=== PATIENT | female | born 1975 | race Caucasian/White ===

== ENCOUNTER 2018-01-05 15:53 | Emergency (ER) | payer BC ==
[2018-01-05 15:59] VITALS: BP 152/99
--- NOTE | 2018-01-05 16:24 | EDPHY ---
H & P Smoking Status: Never smoked Time Seen by Provider: 01/05/18 16:12 HPI/ROS: CHIEF COMPLAINT: Vomiting and abdominal pain HISTORY OF PRESENT ILLNESS: Patient is a 42-year-old female with a long history of idiopathic gastroparesis with the J-tube present for the last 7 years here with"have a gastroparesis flare up." She states she intermittently gets flare-ups of her gastroparesis and developed severe nausea and vomiting this feels like similar flares. She typically takes liquid hydrocodone through the J-tube but forgot her prescription at home. She is in town for business and lives in [place]. Additionally she takes sublingual Zofran but this has not been working the last 2 days. She is in town until Wednesday. She denies any fever or chills diarrhea. Last bowel movement was yesterday. She is passing gas today. REVIEW OF SYSTEMS: Constitutional: No fever, no chills. Eyes: No discharge. ENT: No sore throat. Cardiovascular: No chest pain, no palpitations. Respiratory: No cough, no shortness of breath. Gastrointestinal: + abdominal pain, no vomiting. Genitourinary: No hematuria. Musculoskeletal: No back pain. Skin: No rashes. Neurological: No headache. (Rigoberto Alcocer) Physical Exam: General Appearance: Alert and no distress. Eyes: Pupils equal and round no injection. Respiratory: Chest is nontender, lungs are clear to auscultation. Cardiac: regular rate and rhythm. Gastrointestinal: Abdomen is soft and with minimal epigastric tenderness, no masses, bowel sounds normal. Musculoskeletal: Neck is supple and nontender. Extremities have full range of motion and are nontender. Skin: No rashes or lesions. (Rigoberto Alcocer) Constitutional: Initial Vital Signs Temperature (C) 36.6 C 01/05/18 15:54 Heart Rate 94 01/05/18 15:54 Respiratory Rate 18 01/05/18 15:54 Blood Pressure 152/99 H 01/05/18 15:54 O2 Sat (%) 95 01/05/18 15:54 O2 Delivery Mode Room Air Allergies/Adverse Reactions: amoxicillin [From Augmentin] Allergy (Verified 01/06/18 16:40) clavulanic acid [From Augmentin] Allergy (Verified 01/06/18 16:40) dexamethasone [From Decadron] Allergy (Verified 01/06/18 16:40) hydromorphone [From Dilaudid] Allergy (Verified 01/06/18 16:40) lidocaine Allergy (Verified 01/06/18 16:40) metoclopramide [From Reglan] Allergy (Verified 01/06/18 16:40) Penicillins Allergy (Verified 01/06/18 16:40) tetracycline Allergy (Verified 01/06/18 16:40) verapamil Allergy (Verified 01/06/18 16:40) Home Medications: Medication Instructions Recorded Desgen Dm Tablet 01/05/18 HYDROCODONE-HOMATROPINE SYRUP 01/05/18 Hydrocodone/Acetaminophen [Hycet 10 ml PO Q4-6PRN PRN #100 ml 01/05/18 7.5 mg-325 mg/15 ml Soln] Promethazine HCl 12.5 mg RC TID PRN #12 supp.rect 01/05/18 Xanax 01/05/18 Zofran 01/05/18 oxyCODONE IR [Oxycodone Ir (*)] 5 mg PO Q6 PRN #10 tab 01/06/18 Medical Decision Making ED Course/Re-evaluation: 42-year-old female here with history of gastroparesis requesting refill of pain medication and medication for nausea. Under unable to obtain an IV and she refused further at times and request that we she be discharged with antiemetics and pain medication. Vital signs are stable and she had minimally tender epigastrium. We discussed possible this diagnoses due to not obtaining laboratory work and she agrees to follow up if she is not improving on oral and rectal medications. (Rigoberto Alcocer) This patient left the department before I was able to see her. I had been informed that nursing staff was unable to obtain IV access. My initial plan was to meet her and place PIV with US guidance. However, she was refusing any further IV attempts, requested RX for medications, and the ED when these were provided. She was evaluated by the physician porcelain buildup assistant. I am the secondary supervising physician. (Steffi Omalley) Differential Diagnosis: UTI, electrolyte abnormality, dehydration, bowel obstruction, cholecystitis ( Rigoberto Alcocer) - Data Points Medications Given: Discontinued Medications Promethazine HCl (Phenergan Rectal) 25 mg [place] ONCE ONE Stop: 01/05/18 17:02 Last Admin: 01/05/18 17:05 Dose: 25 mg Departure - Departure Disposition: Home, Routine, Self-Care Clinical Impression: Gastroparesis Condition: Good Instructions: Gastroparesis (ED) Additional Instructions: Follow-up in the ER you're worsening in any way. Referrals: JUNO LOPEZ MD [Other] - As per Instructions Prescriptions: Hydrocodone/Acetaminophen [Hycet 7.5 mg-325 mg/15 ml Soln] 10 ml PO Q4-6PRN PRN #100 ml PRN Reason: Pain, Moderate Promethazine HCl 12.5 mg RC TID PRN #12 supp.rect PRN Reason: Nausea/Vomiting, Use 1st
[2018-01-05] MEDS ORDERED: FAMOTIDINE 20 MG/2 ML SDV IVP ONE (16:25)
[2018-01-05] MEDS ORDERED: NS 1,000 ML IV ONE (16:25)
[2018-01-05] MEDS ORDERED: ONDANSETRON 4 MG/2 ML VIAL IVP ONE (16:25)
[2018-01-05] MEDS ORDERED: PROMETHAZINE HCL 25 MG SUPPR PR ONE (17:01)
== END 2018-01-05 17:20 | disposition home or self-care (01) ==
DX: K31.84 Gastroparesis (principal); Z93.4 Other artificial openings of gastrointestinal tract status

== ENCOUNTER 2018-01-06 16:38 | Emergency (ER) | payer BC ==
[2018-01-06] MEDS ORDERED: ONDANSETRON 4 MG/2 ML VIAL IVP ONE (17:00)
[2018-01-06] MEDS ORDERED: LORazepam 2 MG/ML INJ IVP ONE (17:00)
[2018-01-06] MEDS ORDERED: NS 1,000 ML IV ONE (17:00)
--- NOTE | 2018-01-06 17:00 | EDPHY ---
H & P Stated Complaint: Pain/vomiting since Wednesday. Seen yesterday. Time Seen by Provider: 01/06/18 16:51 HPI/ROS: HPI: This is a 42-year-old female who presents with Chief Complaint: Pain/vomiting since Wednesday. Seen yesterday. Location: GI Quality: Nausea, vomiting Duration: Since Wednesday Signs and Symptoms: no fever, + nausea, + vomiting, no hematemesis, no blood in stool, no abdominal bloating, no diarrhea, no back pain, no urinary symptoms, no vaginal bleeding/discharge, no indigestion, no chest pain, no shortness of breath Timing: Sudden onset, acute on chronic Severity: Moderate Context: Patient has a history of idiopathic gastroparesis with J-tube placement, receives liquid hydrocodone, multiple allergies presents for the 2nd time to the emergency room in 24 hr with complaints of flare of her gastroparesis involving nausea, vomiting several times per day and epigastric discomfort. Epigastric discomfort is described as mild to moderate and nonradiating in nature. She reports that she did not bring her Isosource J tube feedings with her or her oxycodone 5-10 mg tablets that she crushes and places in her J tube. She does report that she felt the liquid hydrocodone given to her yesterday. She complains of epigastric discomfort that is typical for her flares. Patient reports that she has been eating Pedialyte popsicles. She returns home to [place], [place] tomorrow evening. 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 Patient reports that her symptoms started Wednesday and have not improved. Modifying Factors: Zofran ODT with mild relief Comment: ROS: A comprehensive 10 system review of systems is otherwise negative aside from elements mentioned in the history of present illness. MEDICAL/SURGICAL/SOCIAL HISTORY: Medical history: Gastroparesis, Russell. Migraines, postmenopausal Surgical history: J tube, appendectomy, lysis adhesion, Social history: Nonsmoker. Lives in [place], [place]. Employed as a strategic planning director. Family history noncontributory. CONSTITUTIONAL: Patient is tearful but nontoxic-appearing, overweight middle- aged white female, awake and alert HEENT: Atraumatic and normocephalic, PERRL, EOMI. Nares patent; no rhinorrhea; no nasal mucosal edema. Tympanic membranes clear. Oropharynx clear, no exudate and moist pink mucosa. Airway patent. No lymphadenopathy. No meningismus. Cardiovascular: Normal S1/S2, regular rate, regular rhythm, without murmur rub or gallop. PULMONARY/CHEST: Symmetrical and nontender. Clear to auscultation bilaterally. Good air movement. No accessory muscle usage. ABDOMEN: Soft, nondistended, nontender, no rebound, no guarding, no peritoneal signs, no masses or organomegaly. No CVAT. Good bowel sounds heard x4 quadrants. G-tube in place with the stoma showing no erythema, discharge. EXTREMITIES: 2/2 pulses, strength 5/5, no deformities, no clubbing, no cyanosis or edema. NEUROLOGICAL: no focal neuro deficits. GCS 15. SKIN: Warm and dry, no erythema. no rash. Good capillary refill. Source: Patient, Old records Exam Limitations: No limitations - Personal History Current Tetanus/Diphtheria Vaccine: Yes - Medical/Surgical History Hx Asthma: No Hx Chronic Respiratory Disease: No Hx Diabetes: No Hx Cardiac Disease: No Hx Renal Disease: No Hx Cirrhosis: No Hx Alcoholism: No Hx HIV/AIDS: No Hx Splenectomy or Spleen Trauma: No Other PMH: Gastroparesis, has a J-Tube. Russell. Migraines - Social History Smoking Status: Never smoked Constitutional: Initial Vital Signs Temperature (C) 37.0 C 01/06/18 16:41 Heart Rate 99 01/06/18 16:41 Respiratory Rate 18 01/06/18 16:41 Blood Pressure 141/88 H 01/06/18 16:41 O2 Sat (%) 96 01/06/18 16:41 O2 Delivery Mode Room Air Allergies/Adverse Reactions: amoxicillin [From Augmentin] Allergy (Verified 01/06/18 16:40) clavulanic acid [From Augmentin] Allergy (Verified 01/06/18 16:40) dexamethasone [From Decadron] Allergy (Verified 01/06/18 16:40) hydromorphone [From Dilaudid] Allergy (Verified 01/06/18 16:40) lidocaine Allergy (Verified 01/06/18 16:40) metoclopramide [From Reglan] Allergy (Verified 01/06/18 16:40) Penicillins Allergy (Verified 01/06/18 16:40) tetracycline Allergy (Verified 01/06/18 16:40) verapamil Allergy (Verified 01/06/18 16:40) Home Medications: Medication Instructions Recorded Desgen Dm Tablet 01/05/18 HYDROCODONE-HOMATROPINE SYRUP 01/05/18 Hydrocodone/Acetaminophen [Hycet 10 ml PO Q4-6PRN PRN #100 ml 01/05/18 7.5 mg-325 mg/15 ml Soln] Promethazine HCl 12.5 mg RC TID PRN #12 supp.rect 01/05/18 Xanax 01/05/18 Zofran 01/05/18 oxyCODONE IR [Oxycodone Ir (*)] 5 mg PO Q6 PRN #10 tab 01/06/18 Medical Decision Making ED Course/Re-evaluation: Vital signs reviewed and stable upon arrival. No systemic signs. Laboratory studies, IV fluids, IV and oral medications ordered 1700: Patient given 1 L normal saline, IV Zofran, IV Ativan 1 mg, and p.o. Oxycodone IR 10 mg crushed in her J tube Patient's abdomen is soft and benign. She politely refuses any imaging to evaluate for free air, perforation, obstruction as she believes this is directly related to"gastroparesis flare." 1725: Labs reviewed. No signs of acute kidney injury back/electrolyte imbalance/pancreatitis. 1810: Reassessed patient. Reports that nausea and pain continues. Politely declined IV Phenergan. Requesting IV morphine. IV morphine 6 mg given. 1900: Reassessed patient who reports adequate relief of pain and nausea. Passed p.o. Trial prior to discharge. Patient may be going through opiate withdrawal at this time. Given small prescription for oxycodone. Repeat abdominal exam is soft and nontender. Doubt surgical process. This patient was seen under the supervision of my secondary supervising physician. I evaluated care for this patient independently. Discussed this patient with Dr. Kelley. Differential Diagnosis: Differential diagnosis includes but is not limited to gastroparesis, gastroenteritis, anxiety disorder, obstruction. - Data Points Laboratory Results: Laboratory Results 01/06/18 17:05 01/06/18 17:05 Sodium 140 mEq/L mEq/L (135-145) Potassium 3.7 mEq/L mEq/L (3.3-5.0) Chloride 103 mEq/L mEq/L (97-110) Carbon Dioxide 28 mEq/l mEq/l (22-31) Anion Gap 9 mEq/L mEq/L (6-14) BUN 8 mg/dL mg/dL (7-23) Creatinine 0.7 mg/dL mg/dL (0.6-1.0) Estimated GFR > 60 Glucose 119 mg/dL H mg/dL (70-100) Calcium 9.6 mg/dL mg/dL (8.5-10.4) Total Bilirubin 0.5 mg/dL mg/dL (0.1-1.4) AST 27 IU/L IU/L (14-46) ALT 28 IU/L IU/L (9-52) Alkaline Phosphatase 99 IU/L IU/L (38-126) Total Protein 7.2 g/dL g/dL (6.3-8.2) Albumin 4.3 g/dL g/dL (3.5-5.0) Lipase 88 IU/L IU/L (23-300) Medications Given: Discontinued Medications Sodium Chloride (Ns) 1,000 mls @ 0 mls/hr IV EDNOW ONE; Wide Open PRN Reason: Protocol Stop: 01/06/18 17:01 Last Admin: 01/06/18 17:16 Dose: 1,000 mls Lorazepam (Ativan Injection) 1 mg IVP EDNOW ONE Stop: 01/06/18 17:01 Last Admin: 01/06/18 17:18 Dose: 1 mg Morphine Sulfate (Morphine) 6 mg IVP EDNOW ONE Stop: 01/06/18 18:10 Last Admin: 01/06/18 18:16 Dose: 6 mg Ondansetron HCl (Zofran) 4 mg IVP EDNOW ONE Stop: 01/06/18 17:01 Last Admin: 01/06/18 17:18 Dose: 4 mg Oxycodone HCl (Oxycodone Ir) 10 mg TUBE EDNOW ONE Stop: 01/06/18 17:02 Last Admin: 01/06/18 17:22 Dose: 10 mg Promethazine HCl (Phenergan) 12.5 mg IVP ONCE ONE Stop: 01/06/18 17:53 Last Admin: 01/06/18 18:04 Dose: Not Given Departure - Departure Disposition: Home, Routine, Self-Care Clinical Impression: Nondiabetic gastroparesis Condition: Good Instructions: Gastroparesis (ED) Additional Instructions: Consume a minimum of 8-10 glasses of water or electrolyte fluid replacement drinks that include Gatorade, Powerade, Pedialyte. Eat a bland diet for the next 48 hours and then slowly advance as tolerated. Take Zofran 1 tab every 4 hours as needed for nausea, vomiting. Follow-up with primary care provider upon arrival to [place], [place]. Return to the Emergency Room if symptoms do not resolve in the next 48-72 hours , you spike a fever > 102 F, or experience intractable abdominal pain/nausea/ vomiting. Referrals: [facility]CO[facility],DOCTOR [Other] - As per Instructions Prescriptions: oxyCODONE IR [Oxycodone Ir (*)] 5 mg PO Q6 PRN #10 tab PRN Reason: Pain, Severe
[2018-01-06] MEDS ORDERED: oxyCODONE IR 5 MG TAB TUBE ONE (17:01)
[2018-01-06] MEDS ORDERED: PROMETHAZINE HCL 25 MG/ML INJ IVP ONE (17:52)
[2018-01-06 18:22] VITALS: BP 134/106
== END 2018-01-06 19:05 | disposition home or self-care (01) ==
DX: K31.84 Gastroparesis (principal); Z93.4 Other artificial openings of gastrointestinal tract status; Q42.8 Congenital absence, atresia and stenosis of other parts of large intestine; E86.9 Volume depletion, unspecified
CPT/HCPCS: 96374; J2060; J2270; J2405; J2550